=== PATIENT | female | born 1995 | race Caucasian/White ===

== ENCOUNTER 2018-07-24 18:26 | Emergency (ER) | payer SELFPAY ==
[2018-07-24] MEDS ORDERED: Ibuprofen TAB* 600 MG PO ONE (19:20)
--- NOTE | 2018-07-24 19:20 | UC ---
Throat Pain/Nasal Wander HPI - HPI Summary HPI Summary: 23 yo female presents with sore throat, dry cough, and fever for the last 2 days into today. She has been taking pérez-selzter for her symptoms with no change. She is tolerating po well and is eating/drinking without difficulty. Denies sinus symptoms, SOB, chest pain, rash, abdominal pain, n/v, dysuria. She does not smoke. - History of Current Complaint Stated Complaint: FEVER Time Seen by Provider: 07/24/18 19:19 Hx Obtained From: Patient Onset/Duration: Sudden Onset Severity: Mild Pain Intensity: 3 Pain Scale Used: 0-10 Numeric Cough: Nonproductive - Allergies/Home Medications Allergies/Adverse Reactions: Allergies Allergy/AdvReac Type Severity Reaction Status Date / Time No Known Allergies Allergy Unverified 07/24/18 19:22 Home Medications: Home Medications Chlorphenir/Phenyleph/Aspirin [Pérez-[place] Plus Cold 2-7.8-325 mg] 1 tab PO Q12HR PRN 07/24/18 [History Confirmed 07/24/18] PMH/Surg Hx/FS Hx/Imm Hx - Additional Past Medical History Additional PMH: None - Surgical History Surgical History: None - Family History Known Family History: Positive: None - Social History Lives: With Family Alcohol Use: Occasionally Substance Use Type: None Smoking Status (MU): Never Smoked Tobacco Review of Systems All Other Systems Reviewed And Are Negative: Yes Constitutional: Positive: Fever Skin: Positive: Negative Eyes: Positive: Negative ENT: Positive: Sore Throat Respiratory: Positive: Cough Cardiovascular: Positive: Negative Gastrointestinal: Positive: Negative Neurovascular: Positive: Negative Neurological: Positive: Negative Psychological: Positive: Negative Physical Exam - Summary Physical Exam Summary: GENERAL: NAD. WDWN. No pain distress. SKIN: No rashes, sores, lesions, or open wounds. HEENT: Head: AT/NC Eyes: Conjunctiva clear without inflammation or discharge. Ears: Hearing grossly normal. TMs intact, no bulging, erythema, or edema. Nose: Nasal mucosa pink and moist. NTTP maxillary and frontal sinus. Throat: Posterior oropharynx mild erythema and 3+ tonsillar enlargement. Mild exudates. Uvula midline. No hoarse voice or muffled voice. NECK: Supple. Nontender. No lymphadenopathy. CHEST: CTAB. No r/r/w. No accessory muscle use. Breathing comfortably and in no distress. CV: RRR. Without m/r/g. Pulses intact. Cap refill <2seconds NEURO: Alert. PSYCH: Age appropriate behavior. Triage Information Reviewed: Yes Vital Signs: Vital Signs: Temp Pulse Resp BP Pulse Ox 97.9 F 102 16 143/72 99 07/24/18 20:18 07/24/18 20:18 07/24/18 20:18 07/24/18 20:18 07/24/18 20:18 Laboratory Tests 07/24/18 19:27 Group A Strep Rapid Negative Vital Signs (72 hours) 07/24/18 07/24/18 19:20 20:18 Temperature 101.1 F 97.9 F Pulse Rate 117 102 Respiratory 18 16 Rate Blood Pressure 144/75 143/72 (mmHg) O2 Sat by Pulse 100 99 Oximetry Vital Signs Reviewed: Yes Throat Pain/Nasal Course/Dx - Course Course Of Treatment: POC strep negative. CXR: No radiologist reading after 1800, therefore wet read by myself is no PNA. She was given ibuprofen in the clinic and fever resolved and pt felt better overall. Will draw for CBC, CMP, and mono and treat with zpak for tonsillitis. - Differential Dx/Diagnosis Provider Diagnosis: Tonsillitis Discharge - Sign-Out/Discharge Documenting (check all that apply): Patient Departure All imaging exams completed and their final reports reviewed: No - Discharge Plan Condition: Stable Disposition: HOME Prescriptions: Azithromycin TAB* [Zithromax TAB (Z-BRANDIN) 250 mg #6 tabs] 2 tab PO .TODAY, THEN 1 DAILY #1 brandin Patient Education Materials: Mononucleosis (ED), Pharyngitis (ED) Forms: *Work Release Referrals: Sang Bruno MD [Primary Care Provider] - Additional Instructions: If you develop a fever, shortness of breath, chest pain, new or worsening symptoms - please call your PCP or go to the ED immediately. Your blood pressure was slightly at todays visit. Please see your primary provider within 4 weeks for recheck and re-evaluation. Your chest X-Ray appears normal today, but the radiologist will review it in the morning and we will let you know of any change. Your symptoms seem most consistent with mono. We have drawn blood work to test for this today and should have results tomorrow. - Billing Disposition and Condition Condition: STABLE Disposition: Home
[2018-07-24 20:19] VITALS: BP 143/72
[2018-07-25 10:48] LABS: ABS Basophils 0.1 10^3/ul (0-0.2); ABS Lymphocytes 1.5 10^3/ul (1.0-4.8); ABS Monocytes 0.8 10^3/ul (0-0.8); ABS Neutrophils 5.5 10^3/ul (1.5-7.7); Hematocrit 39 % (35-47); Hemoglobin 13.1 g/dL (12.0-16.0); Lymphocyte % 18.8 %; Mean Corpuscular HGB Conc 34 g/dL (31-36); Mean Corpuscular Hemoglobin 28 pg (27-31); Mean Corpuscular Volume 82 fL (80-97); Mean Platelet Volume 8.1 fL (7.4-10.4); Nucleated Red Blood Cells % 0.2; Platelet Count 201 10^3/uL (150-450); Red Cell Distribution Width 13 % (10.5-15); White Blood Count 7.8 10^3/uL (3.5-10.8)
[2018-07-25 12:27] LABS: Albumin 4.5 g/dL (3.2-5.2); Calcium 9.1 mg/dL (8.6-10.3); Potassium 3.5 mmol/L (3.5-5.0); Total Bilirubin 0.6 mg/dL (0.2-1.0)
[2018-07-25 12:33] LABS: Albumin/Globulin Ratio 1.7 (1-3); BUN/Creatinine Ratio 19.5 (8-20); EGFR African American 110.5 (>60); EGFR Non-African American 91.3 (>60); Globulin 2.7 g/dL (2-4); Total Protein 7.2 g/dL (6.4-8.9)
--- NOTE | 2018-07-25 14:56 | UC ---
- Progress Note Progress Note: RADIOLOGY REPORT REVIEWED. No radiographic evidence of acute cardiopulmonary disease. NO CHANGE IN MGMT. Course/Dx - Diagnoses Provider Diagnoses: Tonsillitis Discharge - Sign-Out/Discharge Documenting (check all that apply): Post-Discharge Follow Up All imaging exams completed and their final reports reviewed: Yes - Discharge Plan Condition: Stable Disposition: HOME Prescriptions: Azithromycin TAB* [Zithromax TAB (Z-BRANDIN) 250 mg #6 tabs] 2 tab PO .TODAY, THEN 1 DAILY #1 brandin Patient Education Materials: Mononucleosis (ED), Pharyngitis (ED) Forms: *Work Release Referrals: Sang Bruno MD [Primary Care Provider] - Additional Instructions: If you develop a fever, shortness of breath, chest pain, new or worsening symptoms - please call your PCP or go to the ED immediately. Your blood pressure was slightly at todays visit. Please see your primary provider within 4 weeks for recheck and re-evaluation. Your chest X-Ray appears normal today, but the radiologist will review it in the morning and we will let you know of any change. Your symptoms seem most consistent with mono. We have drawn blood work to test for this today and should have results tomorrow. - Billing Disposition and Condition Condition: STABLE Disposition: Home
[2018-07-26 10:56] LABS: EBV Capsid Ag IgG Ab Positive (Negative); EBV Capsid Ag IgM Ab Negative (Negative); Epstein-Barr Nuclear Antigen Positive (Negative)
== END 2018-07-24 20:19 | disposition home or self-care (01) ==
LOC: UCEAST 18:26
DX: J03.90 Acute tonsillitis, unspecified (principal)
CPT/HCPCS: 36415; 71046; 80053; 85025; 86308; 86664; 86665; 87651; 99202; A9270-GY; G0463

== ENCOUNTER 2018-07-27 07:10 | Emergency (ER) | payer BC ==
[2018-07-27 07:26] VITALS: BP 110/62
--- NOTE | 2018-07-27 07:28 | UC ---
Throat Pain/Nasal Wander HPI - HPI Summary HPI Summary: Patient presents to urgent care reporting sores in her mouth that have progressively less likely 4 hours. Patient was about urgent care on for sore throat. Patient had a negative strep. At this time patient also had blood work done that was negative specifically mono Babak-Garibay. Patient states yesterday she noticed some discomfort in her mouth. When she looked she saw these white ulcerations on her cheek remove her mouth. Patient states she feels like her gums are swollen. No bleeding. No nausea vomiting. Patient took Motrin last night for low-grade fever. Patient did not take any analgesia today. Patient drinking water swallow without difficulty. Patient was concerned she might have a dental infection. Patient states she is not . Patient without any other complaints. Ear pain, sinus pain, cough, shortness of breath, abdominal pain. No nausea vomiting. No diarrhea. No sick contacts. Patient works in daycare. Patient's medications reviewed this visit. - History of Current Complaint Chief Complaint: UCDentalProblem Stated Complaint: DENTAL/MOUTH ISSUES Time Seen by Provider: 07/27/18 07:27 Hx Obtained From: Patient Hx Last Menstrual Period: IUD in place ?: No Onset/Duration: Gradual Onset Severity: Mild Pain Intensity: 2 Pain Scale Used: 0-10 Numeric - Allergies/Home Medications Allergies/Adverse Reactions: Allergies Allergy/AdvReac Type Severity Reaction Status Date / Time No Known Allergies Allergy Verified 07/27/18 07:25 Home Medications: Home Medications Ibuprofen 600 mg PO ONCE PRN 07/27/18 [History Confirmed 07/27/18] PMH/Surg Hx/FS Hx/Imm Hx Previously Healthy: Yes - Surgical History Surgical History: None - Family History Known Family History: Positive: Non-Contributory - Social History Occupation: Employed Full-time Lives: With Family Alcohol Use: Weekly Alcohol Amount: 1-2 week Substance Use Type: None Smoking Status (MU): Never Smoked Tobacco Review of Systems All Other Systems Reviewed And Are Negative: Yes Constitutional: Positive: Fever Skin: Positive: Negative Eyes: Positive: Negative ENT: Positive: Sore Throat, Other - mouth lesions Physical Exam - Summary Physical Exam Summary: Vital Signs Reviewed: Yes low grade temp A+Ox3, no distress, no difficulty with swallowing, drinking water Eyes: Conjunctiva Clear, TAHMINA. EOM intact and full ENT: Hearing grossly normal TM x 2 clear, turbinates wnl, mmoist, uvula midline , no exudate, mild erythema posterior pharynx Pt with small ulcerative lesions buccal membrane L>R and on soft palate. no lesion on tongue, no bleeding gums. mild edema of gumline L>R Neck: Positive: Supple Respiratory: Positive: No respiratory distress, No accessory muscle use + CTA throughout no w/r Cardiovascular: RRR nl s1, s2 no m/r CBT <2 sec abd soft + BS nt/nd no guarding, no distension Musculoskeletal Exam: BRANDON x 4 without difficulty Strength Intact, ROM Intact Neurological: Positive: Alert, + sensation throughout Psychological: Positive: Normal Response To Family Skin: Positive: no rash, no ecchymosis no lesions on hand or feet, no erythema Triage Information Reviewed: Yes Vital Signs: Initial Vital Signs Temp 100.5 F 07/27/18 07:18 Pulse 100 07/27/18 07:18 Resp 18 07/27/18 07:18 BP 110/62 07/27/18 07:18 Pulse Ox 100 07/27/18 07:18 Throat Pain/Nasal Course/Dx - Course Course Of Treatment: Patient presents to urgent care for evaluation of lesions on her mouth. Her gums are swollen. Patient was seen here on with a sore throat. Patient diagnosed with tonsillitis and put on Zithromax. Patient strep is negative this time. Patient also had lab work done was reviewed by me and not concerning. On exam patient has low-grade temperature. Patient does have small ulcerative lesions on her soft palate as well as her membranes with the right. Suspect that this is viral in origin. Discussed with patient viral syndrome likely herpes. Patient does not have a lesions on her interview but she was in daycare so [id number] is options well. Encourage patient to stay hydrated. Motrin/Tylenol. Secretion precautions. Or prescription for Magic mouthwash as needed for pain. Strict return precautions. Patient comfortable in agreement with plan. - Differential Dx/Diagnosis Provider Diagnosis: Gingivostomatitis Discharge - Sign-Out/Discharge Documenting (check all that apply): Patient Departure All imaging exams completed and their final reports reviewed: No Studies - Discharge Plan Condition: Stable Disposition: HOME Prescriptions: Magic Mouth Was-JA/MAAL/LIDO* 5 ml SWISH SPIT Q6HR PRN #150 ml PRN Reason: mouth pain Patient Education Materials: Hand, Foot, and Mouth Disease (ED), Gingivostomatitis (ED) Referrals: Sang Bruno MD [Primary Care Provider] - Additional Instructions: As discussed, the provider that evaluated you today thinks that your oral lesions are likely related to strain herpesvirus. It is possible however that this is [id number] which is a different virus. Either way the treatment is supportive care. The provider makes the following recommendations today: - Stay well hydrated. Drink plenty of non-alcohol, non-caffinated beverages- Cold fluids may be soothing to your throat (popsicles, jello, ice cream, ice water). - - Okay to alternate ibuprofen (Advil, Motrin) 600mg and Tylenol every 3 hours for pain. Take with food. Do NOT take for more than 4-5 days - Okay to gargle and spit warm salt water every 4 hours as needed for pain - Okay to gargle and spit the medication as prescribed for discomfort -Throat infections are spread by oral secretions - do not share eating or drinking utensils until you symptoms are resolved. Clean items that may get your secretions such as cell phones, ipads, computer mouse, television remotes. Once you start to feel better, change your toothbrush and your pillowcase. - humidify the air in the room where you sleep - boil water, run a hot steam shower, vaporizer, cups of water by heat register - get plenty of restful sleep - Contact your doctor to arrange a follow-up appointment as needed - Billing Disposition and Condition Condition: STABLE Disposition: Home
== END 2018-07-27 07:50 | disposition home or self-care (01) ==
LOC: UCEAST 07:10
DX: K05.10 Chronic gingivitis, plaque induced (principal)
CPT/HCPCS: 99212; G0463